=== PATIENT | female | born 1980 | race Caucasian/White ===

== ENCOUNTER 2016-11-29 00:05 | Emergency (ER) | payer OTHER ==
[~2016-11-29] VITALS: Ht 154.9 cm; Wt 92.1 kg
[2016-11-29 00:14] VITALS: BP 109/74
--- NOTE | 2016-11-29 00:44 | NUR ---
PT TAKEN TO BED 3
--- NOTE | 2016-11-29 00:47 | NUR ---
36Y F BIB FAMILY C/O OF DIZZINESS, DE GUZMAN AND NAUSEA X3 DAYS. V/S TAKEN AND WNL. NO DISTRESS NOTED.
[2016-11-29] MEDS ORDERED: LORazepam 1 MG TAB PO ONE (00:55)
[2016-11-29 01:25] VITALS: BP 106/70
--- NOTE | 2016-11-29 01:25 | NUR ---
Patient discharged with v/s stable. Written and verbal after care instructions given and explained. Patient alert, oriented and verbalized understanding of instructions. Ambulatory with steady gait. All questions addressed prior to discharge. ID band removed. Patient advised to follow up with PMD. Rx of NAPROSYN AND XANAX given. Patient educated on indication of medication including possible reaction and side effects. Opportunity to ask questions provided and answered.
== END 2016-11-29 01:25 | disposition home or self-care (01) ==
LOC: MED 00:05
DX: G44.209 Tension-type headache, unspecified, not intractable (principal); R42 Dizziness and giddiness; F43.9 Reaction to severe stress, unspecified

== ENCOUNTER 2021-10-02 21:12 | Emergency (ER) | payer OTHER ==
[~2021-10-02] VITALS: Ht 152.4 cm; Wt 105.7 kg
[2021-10-02 21:27] VITALS: BP 98/70
--- NOTE | 2021-10-02 21:35 | NUR ---
PT TAKEN TO BED 05 VIA W/C. DAUGHTER AT BEDSIDE.
--- NOTE | 2021-10-02 22:27 | NUR ---
PT GETTING KNEE AND ANKLE X RAYS AT BEDSIDE. PT NOTED WITH A U SHAPED GASH ONHER HEAD FROM FALLING FACE DOWN ON THE TILES DUE TO INTAXICATION. EYES PERRLA . PT DENEIS ANY PMHX. DAUGHTER AT [facility] HELPED TO TRANSLATE. PT C/O 05/14 PAIN. PT WILL BE GOING FOR HEAD CT.
--- NOTE | 2021-10-02 22:28 | NUR ---
X-Ray at bedside.
--- NOTE | 2021-10-02 22:39 | NUR ---
PT RETURN FROM CT
[2021-10-02] MEDS: ACETAMINOPHEN EXTRA STRENGTH 500 MG TAB PO ONE (23:19)
--- NOTE | 2021-10-02 23:22 | NUR ---
PT RETURNED FORM HEAD CT SHE WAS GIVENORDERD TDAP VACCINE, WELL REQUESTED PAIN MED (EXTRA STRENGHT TYLENOL ) WHICH WAS GIVEN . REVIEWED RESUTLS OF KNEE AND ANKLE X RAY WELL HEAD CT . ALL OF WHICH WERE NEGATIVE.
--- NOTE | 2021-10-03 01:57 | NUR ---
Dr. Allen examining patient.
[2021-10-03] MEDS ORDERED: TRANEXAMIC ACID 1,000 MG/10 ML VIAL ONE (02:24)
[2021-10-03] MEDS: LIDOCAINE/EPI 2% 1:100000 20 ML VIAL INJ ONE (02:50)
--- NOTE | 2021-10-03 03:12 | NUR ---
PT RECEIVING STITCHES TO THE FOREHEAD AT BEDSIDE.
[2021-10-03] MEDS ORDERED: BACI1PAC6 TP (03:22)
[2021-10-03] MEDS: BACITRACIN OINT 500 UNITS/GM PKT TP ONE (04:09)
== END 2021-10-03 03:45 | disposition home or self-care (01) ==
LOC: MED 21:12
DX: S01.81XA Laceration without foreign body of other part of head, initial encounter (principal); S80.01XA Contusion of right knee, initial encounter; S90.01XA Contusion of right ankle, initial encounter; F10.129 Alcohol abuse with intoxication, unspecified; Z79.2 Long term (current) use of antibiotics; W01.198A Fall on same level from slipping, tripping and stumbling with subsequent striking against other object, initial encounter; Y92.89 Other specified places as the place of occurrence of the external cause; Y93.89 Activity, other specified; Y99.8 Other external cause status
CPT/HCPCS: 12013; 70450; 73562; 73610; 90471; 90715; 99283; J2001; J3490; Q0092